=== PATIENT | female | born 1965 | race Caucasian/White ===

== ENCOUNTER 2018-04-13 07:21 | Emergency (ER) | payer BC ==
[2018-04-13 07:31] VITALS: BP 124/83
--- NOTE | 2018-04-13 07:50 | UC ---
Respiratory Complaint HPI - HPI Summary HPI Summary: 53-year-old woman comes in with a chief complaint of upper respiratory tract infection symptoms for 5 days. Overall she's been of runny nose mild sore throat some ear pressure. Having some coughs. Overnight started feeling a lot worse especially this morning. When she was coughing she started with left upper splinting chest pain. No recent fevers. She does have body aches. The left upper chest pain is worse with deep inspiration and with coughing. When she pushes on the area and also makes the pain worse. Pain is mild at rest. She is having yellow rhinorrhea. Positive Sinus pressure. She has been taking [id number] medicines which does help some with the symptoms. She does not have high blood pressure high cholesterol or diabetes. No prior cardiac history. She did have a leg DVT when she had a cast on for an ankle injury. No further emboli she is not on blood thinners. She's been having some cramping in her calves that she describes as charley horses for the last several weeks. I asked her if she was worried about having a DVT now and she denied that as a charley horse has come and go and they do not feel like the DVT when she had it. - History of Current Complaint Chief Complaint: UCChestPain Stated Complaint: SHARP CHEST PAINS Time Seen by Provider: 04/13/18 07:25 Pain Intensity: 4 - Allergies/Home Medications Allergies/Adverse Reactions: Allergies Allergy/AdvReac Type Severity Reaction Status Date / Time No Known Allergies Allergy Verified 04/13/18 07:32 PMH/Surg Hx/FS Hx/Imm Hx Previously Healthy: Yes Cardiovascular History: Deep Vein Thrombosis - Surgical History Surgical History: Yes Surgery Procedure, Year, and Place: gastric bypass- 10 YRS AGO- [facility] [place]. - [facility] [place]. ENDOMETRIAL ablation-[facility] [place]. hysterectomy-[facility] [place]. CARPAL TUNNEL RELEASE- RIGHT WRIST. HISTORY OF STEROID INJECTIONS TO LOWER BACL X 3- LAST TIME 1.5 YEARS AGO - Family History Known Family History: Positive: Non-Contributory - Social History Alcohol Use: Occasionally Substance Use Type: None Smoking Status (MU): Never Smoked Tobacco Have You Smoked in the Last Year: No Review of Systems All Other Systems Reviewed And Are Negative: Yes Constitutional: Positive: Negative Skin: Positive: Negative Eyes: Positive: Negative ENT: Positive: Sore Throat, Ear Ache, Nasal Discharge, Sinus Congestion, Sinus Pain/Tenderness Respiratory: Positive: Cough Cardiovascular: Positive: Chest Pain Gastrointestinal: Positive: Negative Motor: Positive: Negative Neurovascular: Positive: Negative Musculoskeletal: Positive: Other: - see hpi Neurological: Positive: Negative Is Patient Immunocompromised?: No Physical Exam Triage Information Reviewed: Yes Appearance: No Pain Distress, Well-Nourished, Ill-Appearing - mild Vital Signs: Initial Vital Signs Temp 98.2 F 04/13/18 07:24 Pulse 75 04/13/18 07:24 Resp 18 04/13/18 07:24 BP 124/83 04/13/18 07:24 Pulse Ox 100 04/13/18 07:24 Vital Signs Reviewed: Yes Eye Exam: Normal Eyes: Positive: Conjunctiva Clear ENT: Positive: Pharyngeal erythema, Nasal congestion, Nasal drainage, TM bulging - B/L YEMI Neck exam: Normal Neck: Positive: Supple Respiratory: Positive: Lungs clear, Normal breath sounds, No respiratory distress, Other: - Tender to palpation lt upper anterior chest; this is the chest pain the patient reported. Cardiovascular: Positive: RRR Abdomen Description: Positive: Other: - Mild epigastric tenderness to palpation. Bowel Sounds: Positive: Present Musculoskeletal Exam: Normal Musculoskeletal: Positive: Strength Intact, ROM Intact, No Edema, Other: - No cords Neurological Exam: Normal Neurological: Positive: Alert, Muscle Tone Normal Psychological Exam: Normal Psychological: Positive: Age Appropriate Behavior Skin Exam: Normal UC Diagnostic Evaluation - Laboratory O2 Sat by Pulse Oximetry: 100 - EKG Cardiac Rate: NL - at 0726 Cardiac Rhythm: Sinus: Normal - 65bpm Ectopy: None ST Segment: Normal Respiratory Course/Dx - Course Course Of Treatment: Patient has had upper respiratory tract infection symptoms patient has had upper respiratory tract infection symptoms for 5 days. She reports that the chest pain started with coughing and it also hurts when she palpates the area. We discussed the possibility of a cardiac cause which is unlikely based on history. We discussed going to the emergency department if there was any concern of a cardiac cause or pulmonary embolus. Patient states that the calf discomfort she's been having does not feel like when she had a DVT. She does not have high blood pressure high cholesterol or diabetes. Her chest pain is worse with palpation and worsens with cough and deep breath. She agreed to go the emergency department if her symptoms persisted or got worse. We discussed viral versus bacterial infections and given the patient's serous otitis media in the worsening of her upper respiratory tract infection symptoms I prescribed an antibiotic. There is no wheezing some no prescription for albuterol. Follow-up primary care doctor reevaluate sooner if worse. - Differential Dx/Diagnosis Provider Diagnosis: Upper respiratory infection, Chest pain, Acute serous otitis media of both ears Discharge - Sign-Out/Discharge Documenting (check all that apply): Patient Departure All imaging exams completed and their final reports reviewed: No Studies - Discharge Plan Condition: Stable Disposition: HOME Prescriptions: Amoxicillin/Clavulanate TAB* [Augmentin TAB 875*] 875 mg PO BID #20 tab Patient Education Materials: Chest Pain (ED), Upper Respiratory Infection (ED) Forms: *Work Release Referrals: Andrew Guillen MD [Primary Care Provider] - Additional Instructions: FOLLOW UP WITH YOUR DOCTOR IF NOT COMPLETELY IMPROVED. GO TO THE EMERGENCY DEPARTMENT FOR ANY WORSENING OF YOUR CONDITION; CHEST PAIN, SHORTNESS OF BREATH, YOU FEEL ILL OR QUESTIONS OR CONCERNS. - Billing Disposition and Condition Condition: STABLE Disposition: Home
== END 2018-04-13 08:00 | disposition home or self-care (01) ==
LOC: UCEAST 07:21
DX: J06.9 Acute upper respiratory infection, unspecified (principal); R07.9 Chest pain, unspecified; H65.03 Acute serous otitis media, bilateral; Z86.718 Personal history of other venous thrombosis and embolism
CPT/HCPCS: 93005; 99212; G0463

== ENCOUNTER 2019-07-17 18:08 | Observation (INO) ==
[2019-07-17] MEDS ORDERED: Morphine 4 MG/ML VIAL (1 ml) IV ONE (19:01)
[2019-07-17] MEDS ORDERED: Ondansetron 4 mg VIAL 2 MG/ML 2 ml VIAL IV ONE (19:01)
[2019-07-17] MEDS: NS 0.9% 1000 ml BAG 2,000 ML IV ONE (19:15)
[2019-07-17] MEDS ORDERED: HYDROmorphone 1 MG/1 ML SYRINGE IV ONE (19:17)
[2019-07-17 19:33] LABS: ABS Eosinophils 0.1 10^3/ul (0-0.6); ABS Lymphocytes 2.4 10^3/ul (1.0-4.8); ABS Monocytes 0.5 10^3/ul (0-0.8); Eosinophil % 1.4 %; Hematocrit 34 % (35-47); Hemoglobin 11.3 g/dL (12.0-16.0); Mean Corpuscular HGB Conc 33 g/dL (31-36); Mean Corpuscular Hemoglobin 27 pg (27-31); Mean Corpuscular Volume 81 fL (80-97); Mean Platelet Volume 9.3 fL (7.4-10.4); Platelet Count 268 10^3/uL (150-450); Red Blood Count 4.23 10^6 /uL (3.70-4.87); Red Cell Distribution Width 17 % (10-15); White Blood Count 4.7 10^3/uL (3.5-10.8)
[2019-07-17 20:02] LABS: Albumin 4.2 g/dL (3.2-5.2); Albumin/Globulin Ratio 1.4 (1-3); BUN/Creatinine Ratio 17.7 (8-20); C Reactive Protein 2.33 mg/L (<8.01); Calcium 9.5 mg/dL (8.6-10.3); EGFR African American 73.3 (>60); EGFR Non-African American 60.6 (>60); Potassium 3.9 mmol/L (3.5-5.0); Total Bilirubin 0.5 mg/dL (0.2-1.0); Total Protein 7.2 g/dL (6.4-8.9)
[2019-07-17] MEDS ORDERED: Iohexol 300 (CONTRAST) 10 ML SDV IV ONE (21:14)
[2019-07-17] MEDS ORDERED: HYDROmorphone 0.5 MG/0.5 ML SYRINGE IV ONE (21:24)
[2019-07-17 22:09] LABS: Urine Appearance Clear; Urine Bilirubin Negative (Negative); Urine Blood Negative (Negative); Urine Color Straw; Urine Glucose Negative (Negative); Urine Ketones Trace (Negative); Urine Nitrite Negative (Negative); Urine Protein Negative (Negative); Urine Specific Gravity 1.015 (1.010-1.030); Urine Urobilinogen Negative (Negative)
[2019-07-17 22:11] LABS: Urine Bacteria Absent (Absent); Urine Red Blood Cell Trace(0-2/hpf) (Absent); Urine Squamous Epithelial Cell Present (Absent); Urine White Blood Cell Trace(0-5/hpf) (Absent)
[2019-07-17] MEDS ORDERED: NS 0.9% 1000 ml BAG 1,000 ML IV SCH (23:30)
[2019-07-17] MEDS ORDERED: Bupivacaine 0.25% EPI 200,000 30 ML SDV ONE (23:51)
[2019-07-17] MEDS ORDERED: Succinylcholine 200 mg VIAL 20 mg/ml 10 ml VIAL (200 mg) ONE (23:51)
[2019-07-17] MEDS ORDERED: Lidocaine 2% PF 5 ML VIAL ONE (23:51)
[2019-07-17] MEDS ORDERED: Propofol 10 MG/ML 20 ML BTL ONE (23:51)
[2019-07-17] MEDS ORDERED: Midazolam 2 mg/2 ml VIAL 1 mg/ml 2 ml VIAL (2 mg) ONE (23:51)
[2019-07-17] MEDS ORDERED: fentaNYL 100 mcg/2 ml 50 MCG/ML VIAL ONE (23:51)
[2019-07-18] MEDS ORDERED: ceFAZolin 2 GM PREMIX 2 GM/50 ML BAG ONE (00:12)
[2019-07-18] MEDS ORDERED: Dexamethasone IV 4 MG/ML VIAL 1 ml VIAL ONE (00:13)
[2019-07-18] MEDS ORDERED: Rocuronium 50 mg VIAL 10 mg/ml 5 ml VIAL (50 mg) ONE ×2 (00:13→01:34)
[2019-07-18] MEDS ORDERED: fentaNYL 100 mcg/2 ml 50 MCG/ML VIAL ONE (00:34)
[2019-07-18] MEDS ORDERED: Metoclopramide 5 MG/ML VIAL (10 mg) ONE (00:52)
[2019-07-18] MEDS ORDERED: Ondansetron 4 mg VIAL 2 MG/ML 2 ml VIAL ONE (00:52)
[2019-07-18] MEDS ORDERED: Naloxone 0.4 mg VIAL 0.4 mg/ml 1 ml VIAL IV PRN (01:39)
[2019-07-18] MEDS ORDERED: fentaNYL 100 mcg/2 ml 50 MCG/ML VIAL IV PRN (01:39)
[2019-07-18] MEDS ORDERED: DiMENhydriNATE IV 50 mg/ml 1 ml VIAL IV PUSH PRN (01:39)
[2019-07-18] MEDS ORDERED: HYDROcodone/ACET. 7.5/325 LIQ 15 ML UDC PO PRN (02:28)
[2019-07-18] MEDS: Lactated Ringers 1000 ml BAG 1,000 ML IV SCH ×2 (04:25→11:42)
[2019-07-18 11:01] VITALS: BP 114/55
[2019-07-19] MEDS ORDERED: D5W 1/2 NS KCl 20 meq 1000 ml 1,000 ML IV SCH (04:00)
== END 2019-07-18 14:30 | disposition home or self-care (01) ==
LOC: ED 18:08 → SSU 18:08
PROVIDERS: ADMIT Surgery; ATTEND Surgery